=== PATIENT | male | born 1945 | race Caucasian/White ===

== ENCOUNTER 2018-03-25 14:14 | Emergency (ER) | payer OTHER ==
--- NOTE | 2018-03-25 14:35 | PDOC ---
History of Present Illness - General Stated Complaint: AMS Time Seen by Provider: 03/25/18 14:35 - History of Present Illness Initial Comments: 03/25/18 16:04 The patient is a 72 year old male with a history of Dementia, afib, HTN, HLD, Anxiety who presents from his NH for evaluation of AMS and staple removal. History is limited from the patient due to his dementia. Per EMS and NH paperwork, the patient experienced a fall over a week ago for which he was evaluated here in our ED. They noted that the patient did not seem himself today prompting his presentation to the ED for further evaluation. ROS is limited due to the patient's dementia. Past History - Past Medical History Allergies/Adverse Reactions: Allergies Allergy/AdvReac Type Severity Reaction Status Date / Time No Known Allergies Allergy Verified 03/25/18 14:39 Home Medications: Ambulatory Orders Acetaminophen [Tylenol] 650 mg PO QID PRN 02/03/18 Apixaban [Eliquis -] 5 mg PO BID 02/03/18 Benztropine Mesylate [Cogentin -] 2 mg PO HS 02/03/18 Citalopram Hydrobromide [Celexa -] 40 mg PO DAILY 02/03/18 Clonazepam [Klonopin] 1 mg PO TID 02/03/18 Cyanocobalamin [Vitamin B12 -] 100 mcg PO DAILY 02/03/18 Docusate Sodium [Colace -] 200 mg PO HS 02/03/18 Guaifenesin [Gabrielle-Tussin] 300 mg PO Q8H PRN 02/03/18 Nitroglycerin Sublingual [Nitrostat -] 0.4 mg SL PRN PRN 02/03/18 Sennosides [Natural Laxative] 2 tab PO HS 02/03/18 Simvastatin [Zocor -] 10 mg PO HS 02/03/18 Tamsulosin HCl [Flomax -] 0.4 mg PO DAILY 02/03/18 traZODone HCL [Desyrel -] 50 mg PO BID 02/03/18 Metoprolol Tartrate [Lopressor -] 50 mg PO BID #90 tablet 02/05/18 Cholecalciferol (Vitamin D3) [Vitamin D3 -] 1,000 unit PO DAILY 03/25/18 Docusate Sodium 100 mg PO HS 03/25/18 Quetiapine Fumarate [Seroquel] 50 tab PO HS 03/25/18 Anemia: No Asthma: No Cancer: No Cardiac Disorders: Yes (a fib) CVA: No COPD: No CHF: No Dementia: Yes Diabetes: No GI Disorders: No Disorders: Yes (bph) HTN: Yes Hypercholesterolemia: Yes Liver Disease: No Psychiatric Problems: Yes (anxiety) Seizures: No Thyroid Disease: No - Surgical History Abdominal Surgery: No Appendectomy: No Cardiac Surgery: No Cholecystectomy: No Lung Surgery: No Neurologic Surgery: No Orthopedic Surgery: No - Suicide/Smoking/Psychosocial Hx Smoking History: Current every day smoker Have you smoked in the past 12 months: Yes 'Breaking Loose' booklet given: 02/03/18 Hx Alcohol Use: No Drug/Substance Use Hx: No Substance Use Type: None Review of Systems - Review of Systems Able to Perform ROS?: No (Dementia) *Physical Exam - Physical Exam Comments: 03/25/18 16:08 General Appearance: Nourished. No Apparent Distress HEENT: 10 sagar noted to well healing wound to the patient's posterior scalp. No Pharyngeal Erythema, Tonsillar Exudate, Tonsillar Erythema Neck: No Cervical Lymphadenopathy Respiratory/Chest: Lungs Clear, Normal Breath Sounds. No Crackles, Rales, Rhonchi, Wheezing Cardiovascular: Regular Rhythm, Regular Rate. No Murmur, Gallops, Rubs Gastrointestinal/Abdominal: Normal Bowel Sounds, Soft. No Guarding, Rebound, Tenderness Musculoskeletal: No CVA Tenderness Extremity: Normal Capillary Refill Integumentary: Normal Color, Dry, Warm Neurologic: Oriented x1, Alert, Normal Mood/Affect, Normal Response, ED Treatment Course - LABORATORY CBC & Chemistry Diagram: 03/25/18 15:10 03/25/18 15:10 Medical Decision Making - Medical Decision Making 03/25/18 16:10 The patient is a 72 year old male with a history of Dementia, afib, HTN, HLD, Anxiety who presents from his CT for evaluation of AMS and staple removal. Given the patient's history and physical exam, we will obtain a cbc, cmp, coags , ekg, head ct to evaluate further. We will remove the patient's sagar here in the ED and continue to monitor and reassess. 03/25/18 20:09 cbc, cmp, coags, ua are unremarkable. Head CT is unremarkable as read by our radiologist. The patient's sagar were removed. The patient appears well on exam. We are comfortable discharging the patient back to his NH with primary care provider follow up. We left a message with the patient's nurse at the detention regarding our plan to discharge. *DC/Admit/Observation/Transfer Diagnosis at time of Disposition: Removal of staple - Discharge Dispostion Disposition: HOME Condition at time of disposition: Stable Decision to Admit order: No - Referrals Referrals: Shayne King MD [Primary Care Provider] - - Patient Instructions Printed Discharge Instructions: DI for [facility] -- [place] Additional Instructions: Please return to the ER if you experience concerning or worsening symptoms. Your lab results and head ct were normal here in the ER. We have removed your sagar here in the ER. Please call to schedule a follow up appointment with your primary care provider within 2-3 days to discuss your ER visit and further management of your symptoms. - Post Discharge Activity
[2018-03-25 14:41] VITALS: BMI 22.9
[2018-03-25 15:28] VITALS: TEMP 97.8
--- NOTE | 2018-03-25 16:10 | PDOC ---
Attending Attestation - Resident Resident Name: LeylaAjay - ED Attending Attestation I have performed the following: I have examined & evaluated the patient, The case was reviewed & discussed with the resident, I agree w/resident's findings & plan, Exceptions are as noted - HPI HPI: 03/25/18 16:10 The patient is a 72 year old male with a history of Dementia, afib, HTN, HLD, Anxiety who presents from his NH for evaluation of AMS and staple removal. History is limited from the patient due to his dementia. Per EMS and NH paperwork, the patient experienced a fall over a week ago for which he was evaluated here in our ED. They noted that the patient did not seem himself today prompting his presentation to the ED for further evaluation. ROS is limited due to the patient's dementia. - Physicial Exam PE: 03/25/18 16:10 03/25/18 16:08 General Appearance: Nourished. No Apparent Distress HEENT: 10 sagar noted to well healing wound to the patient's posterior scalp. Neck: No midline tenderness Respiratory/Chest: Lungs Clear, Normal Breath Sounds. Cardiovascular: Regular Rhythm, Regular Rate. No Murmur, Gallops, Rubs Gastrointestinal/Abdominal: Normal Bowel Sounds, Soft. No Guarding, Rebound, Tenderness Musculoskeletal: No deformities noted Extremity: Normal Capillary Refill Integumentary: (+) bruising noted on bottom Neurologic: Oriented x1, Alert, Normal Mood/Affect, Normal Response, - Medical Decision Making 03/25/18 16:11 AMS: EKG: Sinus bradycardia, rate of 59 bpm, axis nml, intervals nml, no st elevations or depressions Labs CT Staple removal UA If nml, can be discharged home
--- NOTE | 2018-03-25 16:15 | EKG ---
Test Reason : Blood Pressure : / mmHG Vent. Rate : 059 BPM Atrial Rate : 059 BPM P-R Int : 150 ms QRS Dur : 074 ms QT Int : 438 ms P-R-T Axes : 034 017 032 degrees QTc Int : 433 ms POOR DATA QUALITY, INTERPRETATION MAY BE ADVERSELY AFFECTED SINUS BRADYCARDIA OTHERWISE NORMAL ECG WHEN COMPARED WITH ECG OF 13-MAR-2018 08:30, NO SIGNIFICANT CHANGE WAS FOUND Confirmed by Jaret Hester ([id number]) on 03/25/2018 4:15:22 PM Referred By: Confirmed By:Jaret Hester
[2018-03-25 16:24] LABS: BASO % 0.3 % (0-2.0); EOS % 1.7 % (0-4.5); HEMATOCRIT 40.1 % (35.4-49); HEMOGLOBIN 13.9 GM/dL (11.7-16.9); LYMPH % 19.8 % (8-40); MCH 32.5 pg (25.7-33.7); MCHC 34.5 g/dl (32.0-35.9); MEAN PLT VOLUME 8.9 fl (7.5-11.1); MONO % 10.8 % (3.8-10.2); NEUT % 67.4 % (42.8-82.8); PLATELET COUNT 168 K/MM3 (134-434); RBC 4.27 M/mm3 (4.00-5.60); RDW 13.2 % (11.9-15.9); WHITE BLOOD COUNT 6.9 K/mm3 (4.0-10.0)
[2018-03-25 16:33] LABS: INR 1.74 (0.83-1.09); PROTHROMBIN TIME (PATIENT) 19.7 SEC (9.7-13.0)
[2018-03-25 16:36] LABS: ACTIVATED PTT 32.8 SECONDS (25.2-36.5)
[2018-03-25 16:39] VITALS: BP 118/68; PULSE 71
[2018-03-25 16:49] LABS: ALBUMIN 3.5 g/dl (3.4-5.0); ANION GAP 9 MMOL/L (8-16); BLOOD UREA NITROGEN 18 mg/dL (7-18); CALCIUM 8.7 mg/dL (8.5-10.1); CHLORIDE 106 mmol/L (98-107); CO2 26 mmol/L (21-32); GLUCOSE,RANDOM 87 mg/dL (74-106); POTASSIUM 4.2 mmol/L (3.5-5.1); SGOT/AST 23 U/L (15-37); SGPT/ALT 20 U/L (12-78); SODIUM 141 mmol/L (136-145)
[2018-03-25 16:53] LABS: ALK PHOS 94 U/L (45-117); BILIRUBIN,TOTAL 0.6 mg/dL (0.2-1.0)
[2018-03-25 17:29] LABS: URINE APPEARANCE CLEAR; URINE BILIRUBIN NEGATIVE (<2.0 mg/dL); URINE COLOR YELLOW; URINE GLUCOSE (UA) NEGATIVE (NEGATIVE); URINE KETONE NEGATIVE (NEGATIVE); URINE LEUK ESTERASE NEGATIVE (NEGATIVE); URINE NITRITE NEGATIVE (NEGATIVE); URINE PROTEIN NEGATIVE (NEGATIVE)
== END 2018-03-25 19:50 | disposition home or self-care (01) ==
LOC: JER 14:14
DX: R41.82 Altered mental status, unspecified (principal); Z48.02 Encounter for removal of sutures; I10 Essential (primary) hypertension; E78.00 Pure hypercholesterolemia, unspecified; F03.90 Unspecified dementia, unspecified severity, without behavioral disturbance, psychotic disturbance, mood disturbance, and anxiety; I48.91 Unspecified atrial fibrillation; Z79.01 Long term (current) use of anticoagulants; N40.0 Benign prostatic hyperplasia without lower urinary tract symptoms; F17.210 Nicotine dependence, cigarettes, uncomplicated
CPT/HCPCS: 36415; 70450-TC; 80053; 81003; 82550; 82553; 82962; 84484; 85025; 85610; 85730; 93005; 93010; 99284-25